=== PATIENT | female | born 1950 | race Caucasian/White ===

== ENCOUNTER 2017-03-01 18:45 | Inpatient (IN) ==
[2017-03-02] MEDS: Ondansetron ODT 4 MG TAB.RAPDIS SL PRN ×2 (08:41→17:43)
[2017-03-02] MEDS: Tiotropium 18 MCG inhalation IH SCH (09:49)
[2017-03-02] MEDS: Cholecalciferol (D-3) 1,000 UNIT TABLET PO SCH (09:51)
[2017-03-02] MEDS: *HR* OxyCODONE/APAP 7.5/325 TABLET PO PRN ×2 (11:04→20:12)
--- NOTE | 2017-03-02 15:47 | Internal Med History&Physical ---
Date of Encounter: 03/02/17 Time of Encounter: 15:10 Assessment and Plan (1) Abdominal abscess Current visit: No Status: Acute Continue with oral antibiotics as ordered. Will add lactobacillus. (2) Hypothyroid Current visit: No Status: Chronic TSH was normal at 0.477 on 10/19/2016. Continue present dose Synthroid. Qualifiers: Hypothyroidism type: unspecified Qualified Code(s): E03.9 - Hypothyroidism , unspecified (3) Anemia Current visit: No Status: Chronic Continue ferrous sulfate. We will add vitamin C and monitor CBC. Qualifiers: Anemia type: other cause Other causes of anemia: other cause, not classified Qualified Code(s): D64.89 - Other specified anemias Internal Medicine - H&P: HPI Chief complaint: Abdominal abscess Admitted From: Hospital to Hospital Transfer Plans for Post Hospital Care: Home History of present illness: Ms. 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 She underwent abscess drainage on initial procedure followed by relocation of the ostomy site. Destabilization she was able to be moved out of the ICU and had further improvement on the medical floor. Was felt she would benefit from rehabilitation therapy prior to returning to independent living at home. She was discharged to [facility] swing bed for ongoing care needs. She was diagnosed initially with Crohn's in 1978. She reports had a total colectomy with development of ileostomy that year. She had ostomy revision surgeries on 3 separate occasions since with the most recent one done during her stay at [facility] last week. She denies disorders of her liver gallbladder or exocrine pancreas. She had C. difficile infection October 2016. Past Med Surg Social Fam HX - Past Medical History Medical history: arthritis, COPD, GERD, thyroid disease, other Psychiatric history: no psych history - Past Surgical History Surgical History: colectomy, herniorrhaphy, other - Social History Smoking Status: Former smoker Smokeless Tobacco Status: No Alcohol use: none Drug use: none - Family History Father Family Member Ethnicity: Non- Living Status: Hx Family Neurologic Disorders: Yes (Alzheimer's disease) Mother Family Member Ethnicity: Non- Living Status: Hx Family Cancer: Yes (Cervical) Hx Family Endocrine Disorder: Yes (DM) Brother Family Member Ethnicity: Non- Living Status: Still Living Hx Family Endocrine Disorder: Yes (DM) Sister Family Member Ethnicity: Non- Living Status: Hx Family Cancer: Yes (Breast) Internal Medicine - H&P: Meds Albuterol Sulfate [Albuterol Inhaler] 2 puff IH Q4H PRN 10/18/16 [History] Cholecalciferol (Vitamin D3) [Vitamin D3] 5,000 unit PO DAILY 10/18/16 [History] Latanoprost [Xalatan] 1 drop PO HS 10/18/16 [History] Omeprazole [PriLOSEC] 40 mg PO DAILY 11/25/16 [History] Levothyroxine [Synthroid] 125 mcg PO 0630 02/17/17 [History] Amoxicillin/Clavulanate [Augmentin] 875 mg PO BIDWM #20 tablet 03/01/17 [Rx] Ferrous Sulfate 325 mg PO BIDWM #0 tablet 03/01/17 [Rx] OxyCODONE/APAP 7.5/325 [Percocet 7.5/325 MG] 1 each PO Q4HR PRN #20 tablet 03/01 [Rx] Tiotropium [place] [Spiriva Respimat] 1 puff IH DAILY #0 03/01/17 [Rx] 3 Allergy/AdvReac Type Severity Reaction Status Date / Time adhesive tape Allergy Rash Verified 03/01/17 23:44 acetaminophen AdvReac Drowsy Verified 03/01/17 23:44 [From Tylenol-Codeine #3] codeine AdvReac Drowsy Verified 03/01/17 23:45 [From Tylenol-Codeine #3] All Systems PM: A 10-system review of systems was performed and is negative for pertinent findings except as documented above in the HPI. Review of systems: Gen.: She states her weight has been stable past few months Cardiovascular: She denies NV hypertension heart failure angina DVT or pulmonary embolus Respiratory: She quit smoking a few months ago after starting at age 21. She smoked up to one pack per day. She reports a diagnosis of COPD but does not use home oxygen. GI: As per history of present illness : She denies hematuria dysuria or kidney stones. Neurologic: She denies large distribution strokes or seizures. Endocrine: She has hypothyroidism but denies diabetes or hyperlipidemia Hematology/oncology: She developed anemia during her recent [facility] hospitalization with surgeries but denies other blood disorders or internal malignancies Psychiatric: She has feelings of anxiety but denies depression or other mental health issues [place] skeletal: She has rheumatoid arthritis and DJD diagnoses. She denies gout. - Constitutional Vitals: Temp Pulse Resp BP Pulse Ox 98.7 F 82 18 93/51 95 03/02/17 11:26 03/02/17 11:26 03/02/17 11:26 03/02/17 11:26 03/02/17 11:26 Exam: Gen.: She is a well-developed well-nourished female sitting in a chair at bedside who appears in no acute distress. HEENT: Head is atraumatic and normocephalic. Eyes: EOMI. There is no scleral icterus. Mouth: Mucosa is moist. Neck: Supple and nontender. There is no thyromegaly or adenopathy noted. She has healing insertion sites from recent right IJ central line placement. Heart: Regular without murmurs gallops or ectopics Lungs: No wheezes or crackles are heard. Abdomen: She has a wound VAC in place with foam in a midline longitudinal incision as well as a connected transverse lateral incision. She has a functioning ostomy in the mid abdominal area just right of midline. The abdomen is nontender to palpation. Exam is limited because she is in the seated position. Extremities: there is no cyanosis edema or clubbing noted. Dorsalis pedis and posterior tibial pulses are trace to 1+ palpable bilaterally. She does not have significant ulnar deviation or inflammatory changes of her MCP joints Neurologic: Mental status: She is talkative and a good historian. Cranial nerves: Smile is symmetric. Forehead wrinkles bilaterally. Tongue protrudes midline. EOMI. Motor: There is no pronator drift. Cerebellar: Finger to nose is intact bilaterally. Skin: Warm and dry - VTE Documentation of Mechanical Device: Intermittent pneumatic compression device
[2017-03-02] MEDS: Latanoprost 2.5 ML BOTTLE BOTH EYES SCH (20:11)
[2017-03-02] MEDS: Lactobacillus 1 EACH CAP.SPRINK PO SCH (20:11)
[2017-03-03] MEDS: Ascorbic Acid 500 MG TABLET PO SCH (06:52)
[2017-03-03] MEDS: Cholecalciferol (D-3) 1,000 UNIT TABLET PO SCH (08:15)
[2017-03-03] MEDS: Lactobacillus 1 EACH CAP.SPRINK PO SCH ×2 (08:15→20:39)
[2017-03-03] MEDS: Tiotropium 18 MCG inhalation IH SCH (10:00)
[2017-03-03] MEDS: *HR* OxyCODONE/APAP 7.5/325 TABLET PO PRN (10:22)
--- NOTE | 2017-03-03 12:07 | Internal Med Progress Note ---
Date of Encounter: 03/03/17 Time of Encounter: 12:00 - Assessment and plan (1) Abdominal abscess Current Visit: No Status: Acute Assessment and plan: March 03. Continue oral antibiotics with lactobacillus. (2) Hypothyroid Current Visit: No Status: Chronic Assessment and plan: March 03. TSH was normal at 0.477 on 10/19/2016. Continue present dose Synthroid Qualifiers: Hypothyroidism type: unspecified Qualified Code(s): E03.9 - Hypothyroidism , unspecified (3) Anemia Current Visit: No Status: Chronic Assessment and plan: March 03. Continue ferrous sulfate with vitamin C. Qualifiers: Anemia type: other cause Other causes of anemia: other cause, not classified Qualified Code(s): D64.89 - Other specified anemias - Subjective Interval history: March 03. She has no new complaints and feels well. - Constitutional Vitals: Temp Pulse Resp BP Pulse Ox 98.4 F 82 16 98/58 94 03/03/17 06:49 03/03/17 06:49 03/03/17 06:49 03/03/17 06:49 03/03/17 06:49 Exam: She is resting comfortably in bed and appears in no acute distress. Her ostomy dressing is being changed by the nurse at this time. I reviewed her medications and lab results. - VTE Documentation of Mechanical Device: Intermittent pneumatic compression device Consult Discharge Plan - Plan Referrals: Jesse Vo MD [Primary Care Provider] - 1 week
[2017-03-03] MEDS: Latanoprost 2.5 ML BOTTLE BOTH EYES SCH (20:39)
[2017-03-04] MEDS: *HR* OxyCODONE/APAP 7.5/325 TABLET PO PRN (05:39)
[2017-03-04] MEDS: Ascorbic Acid 500 MG TABLET PO SCH (05:40)
[2017-03-04] MEDS: Lactobacillus 1 EACH CAP.SPRINK PO SCH ×2 (10:03→19:57)
[2017-03-04] MEDS: Cholecalciferol (D-3) 1,000 UNIT TABLET PO SCH (10:03)
[2017-03-04] MEDS: Tiotropium 18 MCG inhalation IH SCH (10:37)
[2017-03-04] MEDS: Ondansetron ODT 4 MG TAB.RAPDIS SL PRN (17:01)
[2017-03-04] MEDS: Latanoprost 2.5 ML BOTTLE BOTH EYES SCH (19:57)
[2017-03-04] MEDS: Oxymetazoline Nasal SPRAY BOTTLE NS PRN (19:58)
[2017-03-04] MEDS: ALPRAZolam 0.25 MG TABLET PO PRN ×2 (21:10→21:14)
[2017-03-05] MEDS: Ascorbic Acid 500 MG TABLET PO SCH (06:12)
[2017-03-05] MEDS: Cholecalciferol (D-3) 1,000 UNIT TABLET PO SCH (08:42)
[2017-03-05] MEDS: Lactobacillus 1 EACH CAP.SPRINK PO SCH ×2 (08:42→20:58)
[2017-03-05] MEDS: Tiotropium 18 MCG inhalation IH SCH (10:17)
--- NOTE | 2017-03-05 10:54 | Internal Med Progress Note ---
Date of Encounter: 03/05/17 Time of Encounter: 10:45 - Assessment and plan (1) Abdominal abscess Current Visit: No Status: Acute Assessment and plan: March 03. Continue oral antibiotics with lactobacillus. March 05. She will be placed on her home wound VAC tomorrow and discharged if stable. Continue oral antibiotics with lactobacillus to complete a 10 day course post [facility] discharge. (2) Hypothyroid Current Visit: No Status: Chronic Assessment and plan: March 03. TSH was normal at 0.477 on 10/19/2016. Continue present dose Synthroid Qualifiers: Hypothyroidism type: unspecified Qualified Code(s): E03.9 - Hypothyroidism , unspecified (3) Anemia Current Visit: No Status: Chronic Assessment and plan: March 03. Continue ferrous sulfate with vitamin C. Qualifiers: Anemia type: other cause Other causes of anemia: other cause, not classified Qualified Code(s): D64.89 - Other specified anemias - Subjective Interval history: March 03. She has no new complaints and feels well. March 05. She has no new complaints and feels well. She is anticipating discharge home tomorrow. - Constitutional Vitals: Temp Pulse Resp BP Pulse Ox 98.4 F 84 16 97/65 97 03/05/17 06:30 03/05/17 06:30 03/05/17 06:30 03/05/17 06:30 03/05/17 06:30 Exam: She is resting comfortably in bed and appears in no acute distress. Her affect is bright and cheerful. I reviewed her medications and lab results. - VTE Documentation of Mechanical Device: Intermittent pneumatic compression device Consult Discharge Plan - Plan Referrals: Jesse Vo MD [Primary Care Provider] - 1 week
[2017-03-05] MEDS: Ondansetron ODT 4 MG TAB.RAPDIS SL PRN (16:27)
[2017-03-05] MEDS: Oxymetazoline Nasal SPRAY BOTTLE NS PRN (16:27)
[2017-03-05] MEDS: Latanoprost 2.5 ML BOTTLE BOTH EYES SCH (20:58)
[2017-03-05] MEDS: ALPRAZolam 0.25 MG TABLET PO PRN (22:02)
[2017-03-06] MEDS: Ascorbic Acid 500 MG TABLET PO SCH (06:10)
[2017-03-06 06:39] VITALS: BP 102/64
[2017-03-06] MEDS: Tiotropium 18 MCG inhalation IH SCH (08:17)
[2017-03-06] MEDS: Cholecalciferol (D-3) 1,000 UNIT TABLET PO SCH (08:49)
[2017-03-06] MEDS: Lactobacillus 1 EACH CAP.SPRINK PO SCH (08:49)
[2017-03-06] MEDS: *HR* OxyCODONE/APAP 7.5/325 TABLET PO PRN (08:52)
--- NOTE | 2017-03-06 09:48 | Discharge Summary ---
Date of Encounter: 03/06/17 Time of Encounter: 09:40 - Discharge Diagnosis (1) Abdominal abscess Priority: Primary Status: Acute (2) Hypothyroid Priority: Secondary Status: Chronic Qualifiers: Hypothyroidism type: unspecified Qualified Code(s): E03.9 - Hypothyroidism , unspecified (3) Anemia Priority: Secondary Status: Chronic Qualifiers: Anemia type: other cause Other causes of anemia: other cause, not classified Qualified Code(s): D64.89 - Other specified anemias - Discharge Medications Home Medications: Albuterol Sulfate [Albuterol Inhaler] 2 puff IH Q4H PRN 10/18/16 [History] Cholecalciferol (Vitamin D3) [Vitamin D3] 5,000 unit PO DAILY 10/18/16 [History] Latanoprost [Xalatan] 1 drop PO HS 10/18/16 [History] Omeprazole [PriLOSEC] 40 mg PO DAILY 11/25/16 [History] Levothyroxine [Synthroid] 125 mcg PO 0630 02/17/17 [History] Amoxicillin/Clavulanate [Augmentin] 875 mg PO BIDWM #20 tablet 03/01/17 [Rx] Ferrous Sulfate 325 mg PO BIDWM #0 tablet 03/01/17 [Rx] OxyCODONE/APAP 7.5/325 [Percocet 7.5/325 MG] 1 each PO Q4HR PRN #20 tablet 03/01 [Rx] Tiotropium [place] [Spiriva Respimat] 1 puff IH DAILY #0 03/01/17 [Rx] Allergies/Adverse Reactions: 3 Allergy/AdvReac Type Severity Reaction Status Date / Time adhesive tape Allergy Rash Verified 03/01/17 23:44 acetaminophen AdvReac Drowsy Verified 03/01/17 23:44 [From Tylenol-Codeine #3] codeine AdvReac Drowsy Verified 03/01/17 23:45 [From Tylenol-Codeine #3] Date of admission: 03/01/17 21:52 Primary care physician: Jesse Vo Consults: 03/01/17 23:26 Consult to Occupational Therapy [CONS] Routine Comment: evaluate,plan,implement, & develop plan of care Reason for Consult: eval, develop, & implement plan of care evaluate, plan, implement & develop plan of care Consult to Physical Therapy [CONS] Routine Comment: evaluate,plan,develop,& implement plan of care Reason for Consult: evaluate, plan, develop, & implement plan of care evaluate, develop, plan, & implement plan of care Consult to Chief Executive Officer [CONS] Routine Reason for SW Consult: dc planning - Patient Status Disposition: Home Health Service Overall status at discharge: patient is progressing back to baseline - Discharge Instructions Follow Up With: Jesse Vo MD [Primary Care Provider] - 1 week - Diet and Activity Activity: resume usual activities as tolerated Diet: advance to your usual diet Hospital course: Ms. 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 She underwent abscess drainage on initial procedure followed by relocation of the ostomy site. After stabilization she was able to be moved out of the ICU and had further improvement on the medical floor. It was felt she would benefit from rehabilitation therapy prior to returning to independent living at home. She was discharged to [facility] swing bed for ongoing care needs. Initial orders were written by the discharging physicians at [facility]. I saw her on March 02 and performed the swing bed history and physical. She continued with oral antibiotics and lactobacillus. Wound VAC was applied with dressings changed regularly. Social service was consulted and arrangements were completed for her to be discharged home on March 06. She will continue with antibiotic and home wound VAC. She will follow with her surgeons as directed. She will follow with her PCP within one week. Home health services will be ordered. - Time Spent with Patient Total time spent providing and/or coordinating discharge services: - Constitutional Vitals: Temp Pulse Resp BP Pulse Ox 98.8 F 68 12 102/64 98 03/06/17 06:36 03/06/17 06:36 03/06/17 08:17 03/06/17 06:36 03/06/17 08:17 - VTE Documentation of Mechanical Device: Intermittent pneumatic compression device
--- NOTE | 2017-03-06 09:53 | Physician Discharge Referral ---
Home Health/Hosp Referral Info Transfer to: Home Health Attending Provider: Dre Provider in Charge Post Discharge: PCP Ricardo) - Diagnosis (1) Abdominal abscess Priority: Primary Status: Acute (2) Hypothyroid Priority: Secondary Status: Chronic (3) Anemia Priority: Secondary Status: Chronic - Respiratory Orders Smoking Cessation: Smoking cessation has been advised. For more information, call the [place] Tobacco Quit Line at 9-612-IAHP-NOW. - Dressing/Wound Care Type of Dressing/Treatments w/Frequency: Change wound VAC dressing as per surgeon's orders - Activity Activity Orders: Ambulate - Services Needed Following services are medically necessary services: Nursing, Home Health Aide, Physical Therapy, Occupational Therapy - Transfer Medications Home Medications: Albuterol Sulfate [Albuterol Inhaler] 2 puff IH Q4H PRN 10/18/16 [History] Cholecalciferol (Vitamin D3) [Vitamin D3] 5,000 unit PO DAILY 10/18/16 [History] Latanoprost [Xalatan] 1 drop PO HS 10/18/16 [History] Omeprazole [PriLOSEC] 40 mg PO DAILY 11/25/16 [History] Levothyroxine [Synthroid] 125 mcg PO 0630 02/17/17 [History] Amoxicillin/Clavulanate [Augmentin] 875 mg PO BIDWM #20 tablet 03/01/17 [Rx] Ferrous Sulfate 325 mg PO BIDWM #0 tablet 03/01/17 [Rx] OxyCODONE/APAP 7.5/325 [Percocet 7.5/325 MG] 1 each PO Q4HR PRN #20 tablet 03/01 [Rx] Tiotropium [place] [Spiriva Respimat] 1 puff IH DAILY #0 03/01/17 [Rx] Allergies/Adverse Reactions: 3 Allergy/AdvReac Type Severity Reaction Status Date / Time adhesive tape Allergy Rash Verified 03/01/17 23:44 acetaminophen AdvReac Drowsy Verified 03/01/17 23:44 [From Tylenol-Codeine #3] codeine AdvReac Drowsy Verified 03/01/17 23:45 [From Tylenol-Codeine #3] Certification: Further, I certify that my clinical findings support that this patient is homebound (i.e. absences from home require considerable and taxing effort and are for medical reasons or christianity services or infrequently or short duration when for other reasons) because: Homebound Reason: Leaving home requires considerable and taxing effort due to condition (Nominal abscess debridement with wound VAC application.) Attestation: My signature below is to certify that this patient is under my care and that I, or nurse practitioner, or a physician's engineering inspection assistant working with me, has a face-to -face encounter with this patient.
== END 2017-03-06 15:35 | disposition home health service (06) | DRG 949 ==
LOC: INPPIK 21:52
PROVIDERS: ADMIT Internal Medicine; ATTEND Internal Medicine